=== PATIENT | male | born 1980 | race Caucasian/White ===

== ENCOUNTER 2024-05-01 21:15 | Emergency (ER) | payer SELFPAY ==
[2024-05-01 21:22] VITALS: BP 149/101; PULSE 90; RESP 14; TEMP 36.5; O2SAT 99
--- NOTE | 2024-05-01 23:32 | ED.WOUNDLAC ---
HPI - Wound/Laceration General Chief Complaint: Wound/Laceration Stated Complaint: bleeding from lower stomach Time Seen by Provider: 05/01/24 22:37 History of Present Illness HPI narrative: Patient is a 43-year-old male who presents to the ER with an abdominal wound that will not stop bleeding. He reports he is on blood thinners. Patient the abdominal wound several days ago due to tightening his belt. He reports the area was itching so he scratched it. Patient reports today he decided to pull off the scab covering the wound. He reports this happened around 815 and the wound has continued to ooze. Patient reports his primary care provider is who prescribed his medications, but she so he no longer has a primary care provider. He reports he usually goes to his primary care provider every year, but is unsure when his bloodwork was last drawn. Pt denies any other open wounds, fevers, recent signs / symptoms of infection. He would like to get this issue addressed as soon as possible since he needs to get to work. Related Data Home Medications ?Medication ?Instructions ?Recorded ?Confirmed ?Last Taken ?Type No Home Medications 06/11/22 11/05/23 Unknown History Allergies Allergy/AdvReac Type Severity Reaction Status Date / Time No Known Allergies Allergy Verified 11/05/23 13:55 Review of Systems Review of Systems: All systems reviewed & are unremarkable except as noted in HPI and below PMFSH Social History Social History Social History: Caffeine- Smoking status: Never smoker Alcohol intake: unknown Substance use: never Substance use type: does not use Lack of Transportation: No Lack of Food: Never True Current Housing: I Have Housing Concerned About Future Housing: No Difficulty Paying Gas/Electric Bills: No Difficulty Paying for Meds: No Currently Unemployed: No Education: High School Diploma/GED Difficulty w/ Childcare or Family Care: No Occupation/Education: occupation 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 HEAD: Normocephalic, atraumatic. NECK: Supple. No adenopathy, no masses. RESPIRATORY: Airway patent, respirations nonlabored. Clear to auscultation bilaterally, no rales, rhonchi, wheezing. CARDIOVASCULAR: Regular rate and rhythm without murmurs, rubs, or gallops. Peripheral pulses 2+ and equal bilaterally. ABDOMINAL: Soft, nontender, nondistended, no hepatosplenomegaly. Normoactive BS. MUSCULOSKELETAL: Moves all extremities. Strength/ROM intact without gross deformities. SKIN: Warm, dry, normal color. No rashes. Patient has an approximately 1 in long skin tear directly below his umbilicus. The wound is oozing very minimally at the time of examination. There is no palpable edema underneath the wound, nor any areas that appear infected. No warmth, pus, or streaking. NEURO: A&O X3. Speech clear. Cranial nerves II-XII grossly intact. Steady gait. No ataxic movements. PSYCHIATRIC: Appropriate mood and affect. Normal interaction. Course Vital Signs Vital signs: Vital Signs Temperature 36.5 C 05/01/24 21: Pulse Rate 90 05/01/24 21:22 Respiratory Rate 14 05/01/24 21:22 Blood Pressure 149/101 H 05/01/24 21:22 Pulse Oximetry 99 05/01/24 21:22 Oxygen Delivery Room Air 05/01/24 21:22 Temperature 36.5 C 05/01/24 21:22 Pulse Rate 90 05/01/24 21:22 Respiratory Rate 14 05/01/24 21:22 Blood Pressure 149/101 H 05/01/24 21:22 Pulse Oximetry 99 05/01/24 21:22 Oxygen Delivery Room Air 05/01/24 21:22 MDM - Wound/Laceration MDM Narrative Medical decision making narrative: Patient is a 43-year-old male who presents to the ER with an abdominal wound that will not stop bleeding. He reports he is on blood thinners. Patient the abdominal wound several days ago due to tightening his belt. He reports the area was itching so he scratched it. Patient reports today he decided to pull off the scab covering the wound. He reports this happened around 815 and the wound has continued to ooze. Patient reports his primary care provider is who prescribed his medications, but she so he no longer has a primary care provider. He reports he usually goes to his primary care provider every year, but is unsure when his bloodwork was last drawn. Pt denies any other open wounds, fevers, recent signs / symptoms of infection. He would like to get this issue addressed as soon as possible since he needs to get to work. Labs Ordered: None needed Imaging Ordered: None needed Diagnosis: Patient Education/Shared MDM: patient and his strongly advised to establish care with a new primary care provider, especially if patient is on blood thinners. He does not want to have blood work drawn today as he needs to get to work. Cellulose will be placed on oozing wound. He was advised to not itch, scratch, or pull the cellulose off his wound. Patient will be discharged home with strict instructions to establish new primary care provider. He will not be started on any new medications at this time. Patient and his verbalized understanding and are in agreement with plan. Differential Diagnosis Differential diagnosis: Likely laceration, abscess and other (cellulitis, skin tear) Discharge Plan Discharge Clinical Impression: Skin tear Patient Disposition: Home, Self-Care Condition: Stable Instructions: Antibiotic Form, Skin Tear (ED) Additional Instructions: Please return to the ER with an worsening symptoms. Follow-up with primary care provider as soon as possible. Please leave the Cellulose in place. It will fall off on it's own. Patient Language: Telugu Prescriptions: No Action No Home Medications Follow-up/Referrals: PHYSICIAN,CONSERVATION EDUCATOR [Primary Care Provider] - Krishna Herrera MD [Physician] - (primary care provider) Time of Disposition: 23:47
[2024-05-01] MEDS: CELLULOSE OXIDIZED 4 x 8 INCH 1 PKT XX (23:38)
[2024-05-02 00:17] VITALS: BP 190/93; PULSE 93; RESP 16; O2SAT 99
[2024-05-02 00:18] VITALS: BP 190/93; PULSE 93; RESP 16; O2SAT 99
== END 2024-05-02 00:21 | disposition home or self-care (01) ==
PROVIDERS: Emergency Provider Registered Nurse
DX: S31.115A Laceration without foreign body of abdominal wall, periumbilic region without penetration into peritoneal cavity, initial encounter (principal); X58.XXXA Exposure to other specified factors, initial encounter; Z79.01 Long term (current) use of anticoagulants
CPT/HCPCS: 99282